=== PATIENT | female | born 1930 | race Caucasian/White ===

== ENCOUNTER 2016-10-21 14:51 | Outpatient (RCR) | payer MEDICARE ==
[~2016-10-21] VITALS: Ht 160 cm; Wt 87.1 kg
[2016-10-24] MEDS ORDERED: Lidocaine HCl 2% Jelly 5ml Tube TOPIC ONE (14:30)
--- NOTE | 2016-10-29 04:17 | Consultation ---
DATE OF CONSULTATION: INFECTIOUS DISEASE CONSULTATION REQUESTING PHYSICIAN: Travon Diego M.D. Reason For Consultation: Right leg wound infection with Pseudomonas aeruginosa and Enterococcus faecalis. Recommendation for antibiotics treatment. History of Present Illness: The patient is an 86-year-old female with past medical history of left lower extremity cellulitis and hematoma status post evacuation, hypertension, and history of recurrent fall in the past, presented to the wound care clinic with right lower leg care wound for weeks with tenderness and mild drainage. The patient had her right leg wound for six weeks, almost initially sustained laceration on 08/25/2016 while she was on a cruise. The wound was repaired the same-day with sutures and she was given Bactrim. She was seen at for wound check and given oral clindamycin on 09/05/2016 for suspected infection. Sutures were removed on 09/09/2016 and Steri-Strip applied. The patient finished a course of clindamycin antibiotics, but her wound has not been healing well. She noticed more drainage and minimal discomfort, so she was referred to clinical rehab liaison for evaluation. The patient had cephalexin prescription, which she did not take. Wound culture was done at the wound care clinic, which grew Pseudomonas aeruginosa, pansensitive and Enterococcus faecalis, sensitive to ampicillin. The patient also had a CT scan of the right lower extremity, which showed 2.1 x 0.7 x 2.6 centimeter simple fluid collection in the superficial subcutaneous fat of the distal third anterior medial leg suspicious for seroma versus abscess. So, I was consulted by the clinical rehab liaison for antibiotics choice and further recommendation. Past Medical History: Significant for essential hypertension, recurrent falls, cellulitis of the left lower extremity, and hematoma of the left lower extremity and wound infection. Surgical History: She had a total right knee replacement in 2014 and incision and drainage of the left leg hematoma in April 2015. MEDICATIONS: She is on Norvasc, hydrochlorothiazide and cephalexin. ALLERGIES: She is allergic to latex. Social History: The patient lives at home with caregiver. No recent drugs, tobacco, or alcohol. FAMILY HISTORY: Noncontributory. Review of Systems: A 14-point of system reviewed, were all negative apart from the one I mentioned above in my History and Physical. PHYSICAL EXAMINATION: General: An elderly female, lying in bed, awake, alert, oriented, not in distress. HEENT: Normocephalic and atraumatic. Pupils both reactive to light. Pale sclera. Dry oral mucosa. No exudate. NECK: Supple. No lymphadenopathy. CARDIOVASCULAR: Regular rate and rhythm. No murmur or gallop. Lungs: Clear bilaterally. No wheezing or rhonchi. Normal breathing effort. Abdomen: Soft, nontender, and nondistended. Positive bowel sounds. No hepatosplenomegaly. No ascites. Extremities: No edema. No cyanosis. Right leg swelling and anteromedial wound in the distal third with yellowish exudate, mild drainage of pus. There is fluctuation underneath the wound and tenderness. Laboratory And Diagnostic Data: Creatinine 0.9. Imaging, CT scan of the right leg showed 2.1 x 0.7 x 2.6 centimeter simple appearing fluid collection in the superficial subcutaneous fat of the distal third anterior medial leg, moderate diffuse subcutaneous edema of the leg most pronounced anteromedially status post right total knee arthroplasty, chondrocalcinosis and mild degenerative change of the ankle and proximal tibiofibular joints. ASSESSMENT AND RECOMMENDATION: 1. Right leg fluid collection, unclear whether due to recent wound infection, seroma or abscess. Recommend incision and drainage and fluid to be sent for Gram-stain, culture, fungal and AFB. 2. Right lower extremity wound infection with Pseudomonas aeruginosa and Enterococcus faecalis. We will start the patient on oral ampicillin and ciprofloxacin for 14 days pending her surgical drainage of the right leg fluid collection, continue wound care with follow up with the wound care clinic as needed. Thank you for the consult. Infectious Disease will continue to follow. Please feel free to call with any question. Matt Grant M.D. DR: YESSICA JOB#: [id number] CC:
== END 2016-11-08 | disposition home or self-care (01) ==
LOC: WCC 14:51
DX: L97.813 Non-pressure chronic ulcer of other part of right lower leg with necrosis of muscle (principal); L03.115 Cellulitis of right lower limb; R60.0 Localized edema; M79.81 Nontraumatic hematoma of soft tissue; Z96.659 Presence of unspecified artificial knee joint; Z96.629 Presence of unspecified artificial elbow joint; I10 Essential (primary) hypertension; M19.90 Unspecified osteoarthritis, unspecified site; Z91.040 Latex allergy status
CPT/HCPCS: 87070; 87181; 87205; G0463

== ENCOUNTER 2016-11-11 13:30 | Outpatient (RCR) | payer MEDICARE ==
[~2016-11-11] VITALS: Ht 160 cm; Wt 87.1 kg
--- NOTE | 2016-11-11 17:38 | Infectious Diseases Prog Note ---
Assessment/Plan Problems: (1) Wound of right lower extremity Assessment & Plan: infected with pseudomonas aeruginosa, and enterococcus faecalis, improving on cipro and ampicillin , will extend her therapy one more week, continue local wound care and dressing changes as needed (2) Fluid collection (edema) in the arms, legs, hands and feet Assessment & Plan: S/P I&D at [place], bacterial culture is negative, with no fungal elements or AFB seen on the smear , suspect hematoma Subjective Constitutional: Reports: no symptoms HEENT: Reports: no symptoms Respiratory: Reports: no symptoms Breasts: Reports: no symptoms Cardiovascular: Reports: no symptoms Gastrointestinal/Abdominal: Reports: no symptoms Genitourinary: Reports: no symptoms Neurologic: Reports: no symptoms Psychiatric: Reports: no symptoms Skin: Reports: rash Endocrine: Reports: no symptoms Hematologic: Reports: no symptoms Musculoskeletal: Reports: no symptoms Allergies: Coded Allergies: LATEX (Verified Allergy, Unknown, 06/21/15) Objective General Appearance: WD/WN, no acute distress HEENT: normocephalic, atraumatic, anicteric, mucous membranes moist, PERRL, EOMI, pharynx normal, supple, no JVD Respiratory/Chest: chest wall non-tender, lungs clear, normal breath sounds, no respiratory distress, no accessory muscle use Cardiovascular: normal peripheral pulses, normal rate, regular rhythm, no gallop/murmur, no JVD Abdomen: normal bowel sounds, soft, non tender, no organomegaly, non distended , no mass, no scars Extremities: no cyanosis, no clubbing, other - right anterior tibial wounds with good granulation , no significant drainage Skin: no rash, no lesions, ulcers Neurologic/Psychiatric: alert, oriented x 3, responsive Lymphatic: no neck adenopathy, no groin adenopathy Matt Grant M.D. Nov 11, 2016 17:38
[2016-11-14] MEDS ORDERED: Lidocaine HCl 2% Jelly 5ml Tube TOPIC ONE (11:45)
--- NOTE | 2016-11-18 16:05 | Infectious Diseases Prog Note ---
Assessment/Plan Problems: (1) Wound of right lower extremity Assessment & Plan: infected with pseudomonas aeruginosa, and enterococcus faecalis, improving on cipro and ampicillin , S/P three weeks of antibiotics , continue local wound care and dressing changes as needed . no need for more antibiotics since the wound is almost closed and dry , keep wound clean and dry (2) Fluid collection (edema) in the arms, legs, hands and feet Assessment & Plan: S/P I&D at [place], bacterial culture is negative, with no fungal elements or AFB seen on the smear , suspect hematoma. S/P ciprofloxacin and ampicillin for three weeks , with significant improvement Subjective Constitutional: Reports: no symptoms HEENT: Reports: no symptoms Respiratory: Reports: no symptoms Breasts: Reports: no symptoms Cardiovascular: Reports: no symptoms Gastrointestinal/Abdominal: Reports: no symptoms Genitourinary: Reports: no symptoms Neurologic: Reports: no symptoms Psychiatric: Reports: no symptoms Skin: Reports: ulcer Endocrine: Reports: no symptoms Hematologic: Reports: no symptoms Musculoskeletal: Reports: no symptoms Allergies: Coded Allergies: LATEX (Verified Allergy, Unknown, 06/21/15) Objective General Appearance: WD/WN, no acute distress HEENT: normocephalic, atraumatic, anicteric, mucous membranes moist, PERRL, EOMI, pharynx normal, supple, no JVD Respiratory/Chest: chest wall non-tender, lungs clear, normal breath sounds, no respiratory distress, no accessory muscle use Cardiovascular: normal peripheral pulses, normal rate, regular rhythm, no gallop/murmur, no JVD Abdomen: normal bowel sounds, soft, non tender, no organomegaly, non distended , no mass, no scars Extremities: no cyanosis, no clubbing Skin: no rash, no lesions, ulcers Neurologic/Psychiatric: alert, oriented x 3 Matt Grant M.D. Nov 18, 2016 16:05
== END 2016-12-09 | disposition home or self-care (01) ==
LOC: WCC 13:30
DX: S81.801A Unspecified open wound, right lower leg, initial encounter (principal); R60.9 Edema, unspecified; X58.XXXA Exposure to other specified factors, initial encounter; Y93.9 Activity, unspecified; Y92.9 Unspecified place or not applicable; Z91.040 Latex allergy status; M79.81 Nontraumatic hematoma of soft tissue; L97.813 Non-pressure chronic ulcer of other part of right lower leg with necrosis of muscle; R60.0 Localized edema
CPT/HCPCS: 15271; C5271; Q4102; Q4133

== ENCOUNTER 2016-12-16 13:19 | Outpatient (RCR) | payer MEDICARE | END 2017-01-08 | disposition home or self-care (01) | LOC: WCC 13:19 | DX: L97.813 Non-pressure chronic ulcer of other part of right lower leg with necrosis of muscle (principal); M79.81 Nontraumatic hematoma of soft tissue; R60.0 Localized edema; Z96.659 Presence of unspecified artificial knee joint; Z96.629 Presence of unspecified artificial elbow joint; I10 Essential (primary) hypertension; M19.90 Unspecified osteoarthritis, unspecified site; Z91.040 Latex allergy status | CPT/HCPCS: G0463 ×2 ==